=== PATIENT | female | born 2000 | race Caucasian/White ===

== ENCOUNTER 2022-08-27 16:06 | Emergency (ER) | payer SELFPAY ==
[~2022-08-27] VITALS: Ht 177.8 cm; Wt 63.1 kg
[2022-08-27 16:06] VITALS: BP 129/79
== END 2022-08-27 20:00 | disposition left against medical advice (07) ==
LOC: M ED 16:06
DX: Z53.21 Procedure and treatment not carried out due to patient leaving prior to being seen by health care provider (principal)

== ENCOUNTER 2023-02-21 18:53 | Emergency (ER) | payer OTHER, SELFPAY ==
[~2023-02-21] VITALS: Ht 182.9 cm; Wt 65.2 kg
[2023-02-21 18:54] VITALS: BP 122/77
[2023-02-21 19:43] LABS: APPEARANCE, URINE CLOUDY (CLEAR); BACTERIA, URINE AUTO NEGATIVE (NEGATIVE); BILIRUBIN, URINE AUTO NEGATIVE (NEGATIVE); BLOOD, URINE BLOOD 3+ (NEGATIVE); COLOR, URINE YELLOW (YELLOW); GLUCOSE, URINE (UA) AUTO NEGATIVE (NEGATIVE); KETONE, URINE AUTO NEGATIVE (NEGATIVE); LEUKOCYTE ESTERASE, URINE AUTO 3+ (NEGATIVE); NITRITE, URINE AUTO NEGATIVE (NEGATIVE); PROTEIN, URINE AUTO 1+ mg/dL (NEGATIVE); RBC, URINE AUTO TNTC /HPF (0-3); SPECIFIC GRAVITY URINE AUTO 1.013 (1.002-1.035); SQUAMOUS EPITHELIAL CELL UR AU 0 /HPF (0-6); WBC, URINE AUTO 156 /HPF (0-3)
[2023-02-21 21:09] LABS: GC DNA AMPLIFICATION POSITIVE (NEGATIVE)
[2023-02-21] MEDS ORDERED: LIDOCAINE 1% SDV 5ML VIAL DILUENT ONE (21:15)
[2023-02-21] MEDS ORDERED: cefTRIAXone 500MG VIAL IM ONE (21:15)
== END 2023-02-21 21:35 | disposition home or self-care (01) ==
LOC: EDSEX 18:53 → M ED 18:53
DX: A54.01 Gonococcal cystitis and urethritis, unspecified (principal)
CPT/HCPCS: 81001; 87661; 87810; 87850; 96372; 99282; J0696